=== PATIENT | female | born 1970 | race Caucasian/White ===

== ENCOUNTER → 2016-07-13 | Outpatient (CLI) | payer BC ==
[~2016-07-13] MED LIST: APIX1TAB3 PO; ASPI81TA28 PO; CALC1CHW4; CALC500C70 PO; CEPH500C2 PO; ENOX100I; ENOX40IN SQ; FEXO1TAB49 PO; FEXO1TAB58 PO; FLUO0.0566 TOP; TERB250T51 PO; TRIA1SPR4; WARF5TAB7 PO
--- NOTE | 2016-07-13 18:06 | DIAGNOSTIC IMAGING REPORT ---
RIGHT ELBOW 3 VIEWS CLINICAL HISTORY: Right elbow pain. No reported history of trauma. FINDINGS: 3 views of the right elbow are obtained. No prior studies are available for comparison at the time of dictation. The skeletal structures are well mineralized. No fracture is seen. The joint spaces of the elbow are well-maintained. No joint effusion is identified. The overlying soft tissues are within normal limits. IMPRESSION: Unremarkable radiographic assessment of the right elbow. Electronically signed by: Bryce Scanlon M.D. 07/13/2016 6:04 PM Dictated Date/Time: 07/13/2016 6:03 PM
== END | disposition home or self-care (01) ==
LOC: C.RAD1850 16:33
PROVIDERS: ATTEND Nurse Practitioner Adult Health
DX: M25.521 Pain in right elbow (principal)

== ENCOUNTER → 2016-09-07 | Outpatient (CLI) | payer BC | END | disposition home or self-care (01) | LOC: C.PAPS 11:49 | PROVIDERS: ATTEND Obstetrics & Gynecology | DX: Z01.419 Encounter for gynecological examination (general) (routine) without abnormal findings (principal); N95.8 Other specified menopausal and perimenopausal disorders ==

== ENCOUNTER → 2016-10-01 | Outpatient (CLI) | payer BC ==
--- NOTE | 2016-10-02 12:36 | MAMMOGRAPHY REPORT ---
BILATERAL DIGITAL SCREENING MAMMOGRAM TOMOSYNTHESIS WITH CAD: 10/01/2016 CLINICAL HISTORY: Routine screening. Patient has no complaints. TECHNIQUE: Breast tomosynthesis in addition to standard 2D mammography was performed. Current study was also evaluated with a Computer Aided Detection (CAD) system. COMPARISON: Comparison is made to exams dated: 09/27/2014 mammogram and 05/16/2013 mammogram - [facility]. BREAST COMPOSITION: The tissue of both breasts is extremely dense, which lowers the sensitivity of mammography. FINDINGS: No suspicious masses, calcifications, or areas of architectural distortion are noted in e ither breast. There has been no significant interval change compared to prior exams. An oval circum scribed benign appearing 18 mm mass seen within the left lateral anterior breast on the cc view is s table compared to the 2015 exam. IMPRESSION: ACR BI-RADS CATEGORY 2: BENIGN There is no mammographic evidence of malignancy. A 1 year screening mammogram is recommended. The p atient will receive written notification of the results. Approximately 10% of breast cancers are not detected with mammography. A negative mammographic repor t should not delay biopsy if a clinically suggestive mass is present. Ivonne Bhatti M.D. ah/:10/01/2016 16:32:55 Market Developer: Stella PIZARRO(Nabil)(M), [facility] letter sent: Normal 1/2 BI-RADS Code: ACR BI-RADS Category 2: Benign
== END | disposition home or self-care (01) ==
LOC: C.MAMM 15:52
PROVIDERS: ATTEND Obstetrics & Gynecology
DX: Z12.31 Encounter for screening mammogram for malignant neoplasm of breast (principal)

== ENCOUNTER 2016-12-29 11:21 | Emergency (ER) | payer BC ==
[~2016-12-29] VITALS: Ht 167.6 cm; Wt 64.8 kg
[2016-12-29 11:30] VITALS: TEMP 36.9; Ht 167.6 cm; Wt 64.8 kg
[2016-12-29] MEDS ORDERED: ASPI81TA28 PO (11:55)
[2016-12-29 12:51] LABS: BASO % 0.4 %; BASO ABS # 0.02 K/uL (0-0.2); COMPLETE YES; IG% 0.2 %; LYMPH % 29.5 %; LYMPH ABS # 1.62 K/uL (1.2-3.4); MEAN CELL VOLUME 80.6 fL (80-100); MEAN CORPUSCULAR HEMOGLOBIN 26.4 pg (25-34); MEAN CORPUSCULAR HGB CONC 32.8 g/dl (32-36); MONO % 9.5 %; NEUT % 58.4 %; PLATELET COUNT 196 K/uL (130-400); RED BLOOD COUNT 4.96 M/uL (4.2-5.4); WHITE BLOOD COUNT 5.49 K/uL (4.8-10.8)
[2016-12-29 13:02] LABS: PARTIAL THROMBOPLASTIN RATIO 0.9; PROTHROMBIN TIME (PATIENT) 10.7 SECONDS (9.0-12.0)
[2016-12-29 13:14] LABS: BUN/CREATININE RATIO 16.5 (10-20); CALCIUM 9.2 mg/dl (8.5-10.1); CREATININE 0.98 mg/dl (0.60-1.20); POTASSIUM 3.8 mmol/L (3.5-5.1)
--- NOTE | 2016-12-29 13:45 | DIAGNOSTIC IMAGING REPORT ---
ULTRASOUND LEFT VENOUS DOPP LOWER EXT UNILAT CLINICAL HISTORY: Left leg pain and swelling. History of prior DVT COMPARISON STUDY: 06/09/2015 FINDINGS: No thrombus is visualized in the common femoral vein. There is thrombus within the mid and distal portion the superficial femoral vein. The popliteal vein is thrombosed. There is probable involving the posterior tibial and peroneal veins. IMPRESSION: Acute left lower extremity DVT with involvement of the superficial femoral vein, popliteal vein, and posterior tibial and peroneal veins. Electronically signed by: Justin Hayden M.D. 12/29/2016 1:43 PM Dictated Date/Time: 12/29/2016 1:42 PM
--- NOTE | 2016-12-29 16:52 | History and Physical ---
History & Physical Date & Time of Service: Dec 29, 2016 at 16:29 Chief Complaint: Soreness,Swelling,Redness,Constricting Behind Knee Primary Care Physician: Lakshmi Benedict C.R.N.P. History of Present Illness Source: patient 46 y/o F Hx lower extremity DVT in 2003. The pt had been on Coumadin in 2003 and it was suspected that she may have failed treatment as her DVT propagated when her INR was therapeutic. She was placed on Lovenox injections for one month. She is due for vein stripping in her Leg on 01/12 due to venous reflux and resulting varicosities. Over the last 2 days she developed progressive pain in her LLE largely below the knee. She presented tp the ER as she suspected a DVT. Initial US is + for DVT affecting the superficial femoral vein, popliteal vein, and posterior tibial and peroneal veins. 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 drink or smoke Smoking Status: Never Smoker Drug Use: none Marital Status: Occupational Status: employed Multi-Drug Resistant Organisms History of MDRO: No Allergies Coded Allergies: Eugene Oil (Verified Allergy, Mild, MOUTH ULCERS AND SWOLLEN GLANDS, 12/29/16 ) Home Medications Scheduled Aspirin (Aspirin Ec), 81 MG PO DAILY Review of Systems Constitutional: No fever, No chills, No sweats Eyes: No worsening of vision, No eye pain ENT: No hearing loss, No nasal symptoms Respiratory: No cough, No sputum, No wheezing Cardiovascular: No chest pain, No orthopnea, No PND Abdomen: No pain, No nausea, No vomiting Musculoskeletal: + problem reported (Pain of posterior L leg below knee), No joint pain Genitourinary - Female: No dysuria, No urinary frequency, No urinary urgency Neurologic: No memory loss, No paralysis, No weakness Psychiatric: No depression symptoms Endocrine: No fatigue Hematologic / Lymphatic: + clotting problems Integumentary: No rash Allergic / Immunologic: No environmental allergies Physical Exam Vital Signs Date Time Temp Pulse Resp B/P (MAP) Pulse Ox O2 Delivery O2 Flow Rate FiO2 12/29/16 16:12 69 16 109/67 99 Room Air 12/29/16 14:03 62 16 100/65 100 Room Air 12/29/16 11:30 36.9 78 16 124/91 98 General Appearance: WD/WN, no apparent distress Head: normocephalic Eyes: normal inspection, PERRL, EOMI ENT: normal ENT inspection, pharynx normal Neck: supple Respiratory/Chest: chest non-tender, lungs clear, normal breath sounds Cardiovascular: regular rate, rhythm, no edema, no gallop Abdomen/GI: normal bowel sounds, non tender, soft Back: normal inspection, no CVA tenderness, no muscle spasm, normal range of motion Extremities/Musculoskelatal: normal inspection, no calf tenderness, normal capillary refill Neurologic/Psych: clam shucker II-XII nml as tested, no motor/sensory deficits, alert, normal mood/affect, normal reflexes, oriented x 3 Skin: normal color, warm/dry, no rash Diagnostics Laboratory Results Results Past 24 Hours Test 12/29/16 11:45 Range/Units White Blood Count 5.49 4.8-10.8 K/uL Red Blood Count 4.96 4.2-5.4 M/uL Hemoglobin 13.1 12.0-16.0 g/dL Hematocrit 40.0 37-47 % Mean Corpuscular Volume 80.6 80-100 fL Mean Corpuscular Hemoglobin 26.4 25-34 pg Mean Corpuscular Hemoglobin Concent 32.8 32-36 g/dl Platelet Count 196 130-400 K/uL Mean Platelet Volume 10.0 7.4-10.4 fL Neutrophils (%) (Auto) 58.4 % Lymphocytes (%) (Auto) 29.5 % Monocytes (%) (Auto) 9.5 % Eosinophils (%) (Auto) 2.0 % Basophils (%) (Auto) 0.4 % Neutrophils # (Auto) 3.21 1.4-6.5 K/uL Lymphocytes # (Auto) 1.62 1.2-3.4 K/uL Monocytes # (Auto) 0.52 0.11-0.59 K/uL Eosinophils # (Auto) 0.11 0-0.5 K/uL Basophils # (Auto) 0.02 0-0.2 K/uL RDW Standard Deviation 45.3 36.4-46.3 fL RDW Coefficient of Variation 15.4 11.5-14.5 % Immature Granulocyte % (Auto) 0.2 % Immature Granulocyte # (Auto) 0.01 0.00-0.02 K/uL Prothrombin Time 10.7 9.0-12.0 SECONDS Prothromb Time International Ratio 1.0 0.9-1.1 Activated Partial Thromboplast Time 24.5 21.0-31.0 SECONDS Partial Thromboplastin Ratio 0.9 Sodium Level 140 136-145 mmol/L Potassium Level 3.8 3.5-5.1 mmol/L Chloride Level 106 98-107 mmol/L Carbon Dioxide Level 24 21-32 mmol/L Anion Gap 10.0 3-11 mmol/L Blood Urea Nitrogen 16 7-18 mg/dl Creatinine 0.98 0.60-1.20 mg/dl Est Creatinine Clear Calc Drug Dose 67.1 ml/min Estimated GFR () 80.2 Estimated GFR (Non- 69.2 BUN/Creatinine Ratio 16.5 10-20 Random Glucose 83 70-99 mg/dl Calcium Level 9.2 8.5-10.1 mg/dl Total Bilirubin 0.4 0.2-1 mg/dl Direct Bilirubin 0.1 0-0.2 mg/dl Aspartate Amino Transf (AST/SGOT) 28 15-37 U/L Alanine Aminotransferase (ALT/SGPT) 24 12-78 U/L Alkaline Phosphatase 75 45-117 U/L Total Protein 7.6 6.4-8.2 gm/dl Albumin 3.9 3.4-5.0 gm/dl Diagnostic Radiology LE ulrasound: Acute left lower extremity DVT with involvement of the superficial femoral vein , popliteal vein, and posterior tibial and peroneal veins. Impression Assessment and Plan 46 y/o F Hx lower extremity DVT in 2003. The pt had been on Coumadin in 2003 and it was suspected that she may have failed treatment as her DVT propagated when her INR was therapeutic. She was placed on Lovenox injections for one month. She is due for vein stripping in her Leg on 01/12 due to venous reflux and resulting varicosities. Over the last 2 days she developed progressive pain in her LLE largely below the knee. She presented tp the ER as she suspected a DVT. Initial US is + for DVT affecting the superficial femoral vein, popliteal vein, and posterior tibial and peroneal veins. The medical service will make the following recommendations 1) Lovenox 1mg/kg daily 2) Apt with Dr Halle gabriel 3) Return to hospital with any CP, acute SOB or worsening pain/inflammation in your lower extremity Above discussed with pt, ER attending and hematology Total time for this consult - 40 min Please note above is an outpt consult
[2016-12-29] MEDS ORDERED: ENOX40IN SQ (17:17)
[2016-12-29] MEDS ORDERED: ENOXAPARIN 80 MG/0.8 ML SYR SQ ONE (17:30)
[2016-12-29 17:55] VITALS: BP 118/75; PULSE 54; O2SAT 100
--- NOTE | 2016-12-29 21:18 | EMERGENCY ROOM VISIT NOTE ---
ED Visit Note First contact with patient: 11:56 Chief Complaint: Left leg pain. History of Present Illness: Ms. Padilla is a 46-year-old white female who ambulates into the ED complaining of posterior left knee pain. Historically patient reports approximately 12 years ago she had a large DVT in her left leg; she reports from the iliacs down to her ankle, and a subsequent pulmonary embolism. After extensive testing she reports no specific cause was identified and she was not a postsurgical patient. Patient reports approximately one week ago and ultrasound was performed to her leg because she was having pending venous surgery and no clots were identified. Patient reports just today afternoon she was walking to her car up a flight of stairs in a garage and noticed that she had posterior left knee pain. Since that time her pain has been constant. She describes her pain as a sometimes throbbing and sometimes stretching sensation. She currently rates her discomfort 4/10. Her pain has mild radiation superiorly into the posterior aspect of the thigh. Her pain worsens when she climbs stairs or inclines. She had mild relief while at rest. She reports taking an 81 mg tablet of aspirin last night and one again this morning for her discomfort. Associated with her pain she reports last night she noted swelling over the posterior aspect of the knee and into the calf and pain and tenderness over the great toe in the area of the cuticle. He denies headache, dizziness, lightheadedness, upper respiratory tract symptoms , cough, wheezing, shortness of breath, chest pain, palpitations, abdominal pain , nausea, vomiting, diarrhea, rectal bleeding, black/tarry stools, back/flank pain, urinary symptoms, left leg weakness/numbness/tingling, recent trauma to the left leg, recent surgery/extended travel. Review of Systems: As noted above in history of present illness. All body systems were reviewed and found to be negative as noted above. Past Medical History: As previously noted and unspecified skin disorder, asthma , bronchitis, pneumonia, unspecified GI pain that is ongoing and is being evaluated, status post uterine lining ablation, lumbar fusion. Current Medications: Aspirin. Allergies to Medications: Patient denies. Social History: Patient is currently employed; she lives with her and feels safe in her home environment; she denies tobacco and alcohol use. Physical Examination: Vital Signs: Date Time Temp Pulse Resp B/P (MAP) Pulse Ox O2 Delivery O2 Flow Rate FiO2 7/11/17 17:55 54 16 118/75 100 12/29/16 16:12 69 16 109/67 99 Room Air 12/29/16 14:03 62 16 100/65 100 Room Air 12/29/16 11:30 36.9 78 16 124/91 98 GENERAL: 46-year-old female in mild distress due to pain, nontoxic-appearing, afebrile and hemodynamically stable. NEUROLOGICAL: Awake, alert and oriented to person, place and time. Answering questions appropriately and following commands. Normal gait. Good hand eye coordination. No focal motor sensory deficits. SKIN: Warm, dry and pink. No soft tissue eruptions or trauma noted. HEENT: Atraumatic and normocephalic. PERRLA. Sclera white and conjunctiva pink. No drainage from naris. Oral cavity moist and pink. Pharynx is nonerythematous or edematous. Speech normal. No lymphadenopathy. Trachea midline. No jugular venous distention. No carotid bruits. BACK: No tenderness over the bony spine. No CVA tenderness. THORAX: Lungs sounds are clear to auscultation and equal bilaterally with symmetrical chest wall. No wheezing, rales or rhonchi. No crepitus, tenderness , subcutaneous air or deformities noted. HEART: Regular rate and rhythm. No gallops, rubs or murmurs are appreciated. PMI is not displaced. No lifts, heaves or thrills. ABDOMEN: Flat, soft and nontender. Positive bowel sounds in all quadrants. No guarding, rigidity or organomegaly. EXTREMITIES: Moves all extremities well on command and with purpose. All distal neurovascular statuses are intact and equal bilaterally. Left Lower Extremity: Mild to moderate tenderness throughout the popliteal area with mild swelling but no erythema. There is no appearance of cellulitis. No joint line tenderness. Negative patellar apprehension test. Negative ballottement test. No laxity of collateral cruciate ligaments. Morales's testing was deferred. She does have full range of motion of flexion and extension of the knee. Mild fullness to the posterior lower leg without palpable cords. No tenderness through the ankle or foot. Distal pulses are intact. The great toe does show some mild erythema around the cuticle without signs of cellulitis or obvious infection. She was able to distinguish light sensations through all dermatomes of the foot. ED Course: Patient is assessed as noted above. Patient's medication list was reviewed. Laboratory Testing: Test 12/29/16 11:45 Range/Units White Blood Count 5.49 4.8-10.8 K/uL Red Blood Count 4.96 4.2-5.4 M/uL Hemoglobin 13.1 12.0-16.0 g/dL Hematocrit 40.0 37-47 % Mean Corpuscular Volume 80.6 80-100 fL Mean Corpuscular Hemoglobin 26.4 25-34 pg Mean Corpuscular Hemoglobin Concent 32.8 32-36 g/dl Platelet Count 196 130-400 K/uL Mean Platelet Volume 10.0 7.4-10.4 fL Neutrophils (%) (Auto) 58.4 % Lymphocytes (%) (Auto) 29.5 % Monocytes (%) (Auto) 9.5 % Eosinophils (%) (Auto) 2.0 % Basophils (%) (Auto) 0.4 % Neutrophils # (Auto) 3.21 1.4-6.5 K/uL Lymphocytes # (Auto) 1.62 1.2-3.4 K/uL Monocytes # (Auto) 0.52 0.11-0.59 K/uL Eosinophils # (Auto) 0.11 0-0.5 K/uL Basophils # (Auto) 0.02 0-0.2 K/uL RDW Standard Deviation 45.3 36.4-46.3 fL RDW Coefficient of Variation 15.4 11.5-14.5 % Immature Granulocyte % (Auto) 0.2 % Immature Granulocyte # (Auto) 0.01 0.00-0.02 K/uL Prothrombin Time 10.7 9.0-12.0 SECONDS Prothromb Time International Ratio 1.0 0.9-1.1 Activated Partial Thromboplast Time 24.5 21.0-31.0 SECONDS Partial Thromboplastin Ratio 0.9 Sodium Level 140 136-145 mmol/L Potassium Level 3.8 3.5-5.1 mmol/L Chloride Level 106 98-107 mmol/L Carbon Dioxide Level 24 21-32 mmol/L Anion Gap 10.0 3-11 mmol/L Blood Urea Nitrogen 16 7-18 mg/dl Creatinine 0.98 0.60-1.20 mg/dl Est Creatinine Clear Calc Drug Dose 67.1 ml/min Estimated GFR () 80.2 Estimated GFR (Non- 69.2 BUN/Creatinine Ratio 16.5 10-20 Random Glucose 83 70-99 mg/dl Calcium Level 9.2 8.5-10.1 mg/dl Total Bilirubin 0.4 0.2-1 mg/dl Direct Bilirubin 0.1 0-0.2 mg/dl Aspartate Amino Transf (AST/SGOT) 28 15-37 U/L Alanine Aminotransferase (ALT/SGPT) 24 12-78 U/L Alkaline Phosphatase 75 45-117 U/L Total Protein 7.6 6.4-8.2 gm/dl Albumin 3.9 3.4-5.0 gm/dl Left Lower Extremity Venous Doppler Ultrasound: Was reviewed by myself and read by the radiologist and shows acute left lower extremity DVT involving the superficial femoral vein, popliteal vein, posterior tibial and peroneal veins. Patient was offered pain medication and refused multiple times. Patient's case was reviewed with Dr. Guerin; we agreed on diagnostic approach, treatment, disposition and plan. Patient's case was consulted with Dr. Snow, vascular surgery; he recommended heparinization and admission. Patient's case was consulted with case management and [facility] Thacker, [facility]; case management felt patient had qualifications for admission. Dr. Thacker felt she could be treated with Lovenox and discharged home. I did recontact Dr. Snow for his recommendations and he felt that since this involved for veins there was an extensive clot and once again she should be heparinized be brought into the hospital for further evaluation and care. Dr. Guerin spoke with Dr. Thacker and reported Dr. Thacker will evaluate the patient for admission. Approximately 2 hours after receiving notification of admission I was called by my attending, Dr. Guerin, who informed me that Dr. Thacker was discharging the patient home to follow-up with hematology. I was requested to write the patient 's discharge instructions from Dr. Thacker notes. Patient was given 65 mg of Lovenox subcutaneous. Patient was given nursing education on subcutaneous injections. Patient was given discharge instructions, prescriptions for her ongoing Lovenox injections and contact information for her follow-up with Dr. Padron. Clinical Impression: Acute left lower leg DVT. Decision-Making: Initially my differential diagnosis I considered DVT, ruptured popliteal cyst, muscle/tendon strain, and other causes. Disposition: Patient discharged home in stable condition accompanied by multiple family members; prior to departure she was reassessed and subjectively reported that she was pain-free. Plan: Dr. Thacker's discharge instructions: Use 1 mg/kg Lovenox injection subcutaneous once a day. Follow-up with Dr. Padron; he reported appointment was made but I was unable to find an appointment time or date or location. Return to the hospital for chest pain, short of breath, worsening pain/ inflammation of the lower extremity.
[2017-01-12] MEDS ORDERED: ENOX100I (11:19)
[2017-01-12] MEDS ORDERED: FEXO1TAB49 PO (11:19)
[2017-01-12] MEDS ORDERED: CALC1CHW4 (13:43)
[2017-01-12] MEDS ORDERED: WARF5TAB7 PO (14:04)
[2017-01-15] MEDS ORDERED: FEXO1TAB58 PO (11:49)
[2017-01-19] MEDS ORDERED: TRIA1SPR4 (14:31)
[2017-01-22] MEDS ORDERED: FLUO0.0566 TOP (11:45)
[2017-01-22] MEDS ORDERED: CALC500C70 PO (11:45)
[2017-01-29] MEDS ORDERED: WARF5TAB7 PO (14:03)
[2017-03-01] MEDS ORDERED: CEPH500C2 PO (12:19)
[2017-03-05] MEDS ORDERED: TERB250T51 PO (09:58)
[2017-03-16] MEDS ORDERED: APIX1TAB3 PO (11:17)
== END 2016-12-29 17:55 | disposition home or self-care (01) ==
LOC: C.EDB 11:22
DX: I82.432 Acute embolism and thrombosis of left popliteal vein (principal); I82.442 Acute embolism and thrombosis of left tibial vein; I82.890 Acute embolism and thrombosis of other specified veins; I82.812 Embolism and thrombosis of superficial veins of left lower extremity; J45.909 Unspecified asthma, uncomplicated; Z86.718 Personal history of other venous thrombosis and embolism; Z86.711 Personal history of pulmonary embolism; Z79.82 Long term (current) use of aspirin

== ENCOUNTER 2016-12-31 10:31 | Emergency (ER) | payer BC, OTHER ==
[~2016-12-31] VITALS: Ht 167.6 cm; Wt 64.1 kg
[~2016-12-31 10:31] MED LIST changes: -APIX1TAB3 PO; -CALC1CHW4; -CALC500C70 PO; -CEPH500C2 PO; -ENOX100I; -FEXO1TAB49 PO; -FEXO1TAB58 PO; -FLUO0.0566 TOP; -TERB250T51 PO; -TRIA1SPR4; -WARF5TAB7 PO
[2016-12-31 10:35] VITALS: TEMP 36.7; Ht 167.6 cm; Wt 64.1 kg
--- NOTE | 2016-12-31 10:55 | EMERGENCY ROOM VISIT NOTE ---
History Report prepared by Darryl: Shaw Romero Under the Supervision of: Dr. Roni Keller M.D. First contact with patient: 10:44 Chief Complaint: SHORTNESS OF BREATH Stated Complaint: LIGHTNEADED, SOB, PAIN IN LEG W/ CLOTS Nursing Triage Summary: Pt c/o SOB, dx with 4 blood clots behind left knee on Wednesday. Taking Lovenox. Hx PE. History of Present Illness The patient is a 46 year old female who presents to the Emergency Room with complaints of constant shortness of breath starting earlier today. The patient states that she was diagnosed with four blood clots behind her left knee two days ago. The patient states that this morning she was having cramping in the back of her calves, and when she went to walk she was becoming short of breath and light headed. She states that she has a history of induced asthma as well. The patient states that she is not currently on coumadin, and she is taking Lovenox shots. Source of History: patient Onset: earlier today Position: other (global) Quality: other (shortness of breath) Timing: constant Note: Associated symptoms: Calf cramping and light headedness Review of Systems See HPI for pertinent positives & negatives. A total of 10 systems reviewed and were otherwise negative. Past Medical & Surgical Medical Problems: (1) Deep vein blood clot of left lower extremity (2) Pulmonary embolism Social History Smoking Status: Never Smoker Alcohol Use: none Drug Use: none Marital Status: Housing Status: lives with family Occupation Status: employed Current/Historical Medications Scheduled Enoxaparin (Lovenox), 65 MG SQ DAILY Allergies Coded Allergies: [place] Oil (Verified Allergy, Mild, MOUTH ULCERS AND SWOLLEN GLANDS, 12/31/16 ) Physical Exam Vital Signs Date Time Temp Pulse Resp B/P (MAP) Pulse Ox O2 Delivery O2 Flow Rate FiO2 12/31/16 12:39 58 20 115/80 99 Room Air 12/31/16 11:38 57 12/31/16 11:14 98 Room Air 12/31/16 11:13 98 Room Air 12/31/16 11:13 98 Room Air 12/31/16 10:35 36.7 69 18 143/93 100 Room Air 12/31/16 10:35 100 Physical Exam GENERAL: Patient is a healthy-appearing well-nourished female HEAD: Normocephalic atraumatic EYES: Ocular movements intact pupils equal and react to light OROPHARYNX mucous membranes are moist no exudates present no erythema or edema present NECK: Supple no nuchal rigidity CHEST: Good equal expansion LUNGS: Clear and equal to auscultation CARDIAC: Normal S1 and S2 ABDOMEN: Soft nontender no guarding BACK: No CVA tenderness EXTREMITIES: No pain upon palpation normal muscle strength in all groups no clubbing cyanosis or edema NEURO: Patient is following commands and answering questions appropriately. Alert and oriented x3 Cranial Nerves 2-12 grossly intact Medical Decision & Procedures ER Provider Diagnostic Interpretation: CT results as stated below per my review and radiologist interpretation: (CHEST FOR PE) ANGIO WITH CT DOSE: 203.65 mGy.cm HISTORY: Chest pain dyspnea TECHNIQUE: Multiaxial CT images of the chest were performed following the intravenous administration of contrast to evaluate the pulmonary arteries. Maximal intensity projection images were also obtained. COMPARISON STUDY: 10/23/2008 FINDINGS: There is a normal caliber thoracic aorta with no evidence for dissection. There is no evidence for pulmonary embolus. No pleural effusions. No pneumothorax. The liver and spleen are unremarkable. No mediastinal or hilar lymphadenopathy. The central airways are patent. The lungs are clear. IMPRESSION: No evidence for pulmonary embolus. The lungs are clear. The above report was generated using voice recognition software. It may contain grammatical, syntax or spelling errors. Electronically signed by: Abhilash Wilkinson M.D. 12/31/2016 12:03 PM Dictated Date/Time: 12/31/2016 12:00 PM Laboratory Results 12/31/16 11:05 Red Blood Count 4.78, Mean Corpuscular Volume 82.2, Mean Corpuscular Hemoglobin 26.2, Mean Corpuscular Hemoglobin Concent 31.8, Mean Platelet Volume 9.7, Neutrophils (%) (Auto) 47.0, Lymphocytes (%) (Auto) 42.6, Monocytes (%) (Auto) 7.5, Eosinophils (%) (Auto) 2.6, Basophils (%) (Auto) 0.3, Neutrophils # (Auto) 1.82, Lymphocytes # (Auto) 1.65, Monocytes # (Auto) 0.29, Eosinophils # (Auto) 0.10, Basophils # (Auto) 0.01 12/31/16 11:05 Test 12/31/16 11:05 12/31/16 11:09 12/31/16 12:35 White Blood Count 3.87 K/uL (4.8-10.8) Red Blood Count 4.78 M/uL (4.2-5.4) Hemoglobin 12.5 g/dL (12.0-16.0) Hematocrit 39.3 % (37-47) Mean Corpuscular Volume 82.2 fL (80-100) Mean Corpuscular Hemoglobin 26.2 pg (25-34) Mean Corpuscular Hemoglobin Concent 31.8 g/dl (32-36) Platelet Count 157 K/uL (130-400) Mean Platelet Volume 9.7 fL (7.4-10.4) Neutrophils (%) (Auto) 47.0 % Lymphocytes (%) (Auto) 42.6 % Monocytes (%) (Auto) 7.5 % Eosinophils (%) (Auto) 2.6 % Basophils (%) (Auto) 0.3 % Neutrophils # (Auto) 1.82 K/uL (1.4-6.5) Lymphocytes # (Auto) 1.65 K/uL (1.2-3.4) Monocytes # (Auto) 0.29 K/uL (0.11-0.59) Eosinophils # (Auto) 0.10 K/uL (0-0.5) Basophils # (Auto) 0.01 K/uL (0-0.2) RDW Standard Deviation 47.0 fL (36.4-46.3) RDW Coefficient of Variation 15.6 % (11.5-14.5) Immature Granulocyte % (Auto) 0.0 % Immature Granulocyte # (Auto) 0.00 K/uL (0.00-0.02) Heparin Anti-Xa Act, Low Molec Wt 0.33 IU/ML (0 - <0.10) Est Creatinine Clear Calc Drug Dose 71.5 ml/min Estimated GFR () 86.5 Estimated GFR (Non- 74.7 BUN/Creatinine Ratio 16.6 (10-20) Calcium Level 9.4 mg/dl (8.5-10.1) Total Bilirubin 0.4 mg/dl (0.2-1) Aspartate Amino Transf (AST/SGOT) 22 U/L (15-37) Alanine Aminotransferase (ALT/SGPT) 20 U/L (12-78) Alkaline Phosphatase 71 U/L (45-117) Total Protein 7.2 gm/dl (6.4-8.2) Albumin 3.6 gm/dl (3.4-5.0) Globulin 3.6 gm/dl (2.5-4.0) Albumin/Globulin Ratio 1.0 (0.9-2) Bedside Hemoglobin 12.2 g/dl (12.0-16.0) Bedside Hematocrit 36 % (37-47) Bedside Sodium 141 mEq/L (135-144) Bedside Potassium 3.7 mEq/L (3.3-5.0) Bedside Chloride 104 mEq/L (101-112) Bedside Total CO2 26 mEq/l (24-31) Anion Gap 16.0 mmol/L (16-25) Bedside Blood Urea Nitrogen 18 mg/dl (7-18) Bedside Creatinine 0.8 mg/dl (0.6-1.3) Bedside Glucose (other) 75 mg/dl (70-99) Bedside Ionized Calcium ([place]) 1.28 mmol/l (1.12-1.32) Urine Color YELLOW Urine Appearance CLEAR (CLEAR) Urine pH 6.5 (4.5-7.5) Urine Specific [place] 1.015 (1.000-1.030) Urine Protein NEG (NEG) Urine Glucose (UA) NEG (NEG) Urine Ketones NEG (NEG) Urine Occult Blood NEG (NEG) Urine Nitrite NEG (NEG) Urine Bilirubin NEG (NEG) Urine Urobilinogen NEG (NEG) Urine Leukocyte Esterase NEG (NEG) Labs reviewed by ED physician. ECG Indication: SOB/dyspnea Rate (beats per minute): 54 Rhythm: sinus bradycardia Findings: no acute ischemic change, no ectopy ED Course 1044: Past medical records reviewed. The patient was evaluated in room C5. A complete history and physical examination was performed. 1240: Upon reexamination the patient is feeling better. I discussed results and treatment plan with the patient. She verbalizes agreement and understanding. The patient is ready for discharge. Medical Decision Differential diagnosis: Etiologies such as infections, reactive airway disease, pneumonia, pneumothorax , COPD, CHF, cardiac ischemia, pulmonary embolism, musculoskeletal, gastrointestinal, as well as others were entertained. Blood Pressure Screening: Patient was found to have normal blood pressure on screening and does not require follow up. Medication Reconciliation: I attest that I have personally reviewed the patient' s current medication list this is a 46-year-old female who presents emergency department complaining of shortness of breath. The patient is a history of PEs and was recently started on Lovenox for DVT. For this reason the patient was sent for CAT scan of the chest. This did not show any evidence of PE. I do feel that the patient can be safely discharged home. I advised patient to continue taking her Lovenox. Patient was in agreement with the treatment plan. Impression Primary Impression: Deep vein blood clot of left lower extremity Scribe Attestation The scribe's documentation has been prepared under my direction and personally reviewed by me in its entirety. I confirm that the note above accurately reflects all work, treatment, procedures, and medical decision making performed by me. Departure Information Dispostion Home / Self-Care Referrals Lakshmi Benedict C.R.N.P. (PCP) Forms HOME CARE DOCUMENTATION FORM, IMPORTANT VISIT INFORMATION Patient Instructions My [facility] Additional Instructions Continue taking Lovenox, Keep appointments as previously scheduled You have been examined and treated today on an emergency basis only. This is not a substitute for, or an effort to provide, complete comprehensive medical care. It is impossible to recognize and treat all injuries or illnesses in a single emergency department visit. It is therefore important that you follow up closely with your PCP. Call as soon as possible for an appointment. Thank you for your time and consideration. I look forward to speaking with you again soon. Please don't hesitate to call us if you have any questions. Problem Qualifiers Primary Impression: Deep vein blood clot of left lower extremity Affected thrombotic vein of extremity: unspecified vein of extremity Chronicity: unspecified Qualified Codes: I82.402 - Acute embolism and thrombosis of unspecified deep veins of left lower extremity
[2016-12-31] MEDS ORDERED: OPTIRAY 320 IV PRN (11:00)
[2016-12-31 11:13] VITALS: O2SAT 98
[2016-12-31 11:20] LABS: ISTAT CREATININE 0.8 mg/dl (0.6-1.3); ISTAT HEMOGLOBIN 12.2 g/dl (12.0-16.0); ISTAT IONIZED CALCIUM 1.28 mmol/l (1.12-1.32)
[2016-12-31 11:22] LABS: BASO % 0.3 %; BASO ABS # 0.01 K/uL (0-0.2); COMPLETE YES; EOS % 2.6 %; HEMATOCRIT 39.3 % (37-47); LYMPH % 42.6 %; LYMPH ABS # 1.65 K/uL (1.2-3.4); MEAN CELL VOLUME 82.2 fL (80-100); MEAN CORPUSCULAR HEMOGLOBIN 26.2 pg (25-34); MEAN CORPUSCULAR HGB CONC 31.8 g/dl (32-36); MEAN PLATELET VOLUME 9.7 fL (7.4-10.4); MONO % 7.5 %; PLATELET COUNT 157 K/uL (130-400); RED BLOOD COUNT 4.78 M/uL (4.2-5.4); WHITE BLOOD COUNT 3.87 K/uL (4.8-10.8)
[2016-12-31 11:38] LABS: BUN/CREATININE RATIO 16.6 (10-20); CALCIUM 9.4 mg/dl (8.5-10.1); CREATININE 0.92 mg/dl (0.60-1.20); POTASSIUM 3.7 mmol/L (3.5-5.1)
--- NOTE | 2016-12-31 12:04 | DIAGNOSTIC IMAGING REPORT ---
(CHEST FOR PE) ANGIO WITH CT DOSE: 203.65 mGy.cm HISTORY: Chest pain dyspnea TECHNIQUE: Multiaxial CT images of the chest were performed following the intravenous administration of contrast to evaluate the pulmonary arteries. Maximal intensity projection images were also obtained. COMPARISON STUDY: 10/23/2008 FINDINGS: There is a normal caliber thoracic aorta with no evidence for dissection. There is no evidence for pulmonary embolus. No pleural effusions. No pneumothorax. The liver and spleen are unremarkable. No mediastinal or hilar lymphadenopathy. The central airways are patent. The lungs are clear. IMPRESSION: No evidence for pulmonary embolus. The lungs are clear. The above report was generated using voice recognition software. It may contain grammatical, syntax or spelling errors. Electronically signed by: Abhilash Wilkinson M.D. 12/31/2016 12:03 PM Dictated Date/Time: 12/31/2016 12:00 PM
[2016-12-31 12:39] VITALS: BP 115/80; PULSE 58; O2SAT 99
[2016-12-31 13:09] LABS: URINE APPEARANCE CLEAR (CLEAR); URINE BILIRUBIN NEG (NEG); URINE COLOR YELLOW; URINE NITRITE NEG (NEG); URINE PH 6.5 (4.5-7.5); URINE SPECIFIC GRAVITY 1.015 (1.000-1.030); UROBILINOGEN NEG (NEG)
[2016-12-31 13:13] LABS: MANUAL MICROSCOPIC REQUIRED? NO; REVIEW REQ? NO
[2017-01-12] MEDS ORDERED: ENOX100I (11:19)
[2017-01-12] MEDS ORDERED: FEXO1TAB49 PO (11:19)
[2017-01-12] MEDS ORDERED: CALC1CHW4 (13:43)
[2017-01-12] MEDS ORDERED: WARF5TAB7 PO (14:04)
[2017-01-15] MEDS ORDERED: FEXO1TAB58 PO (11:49)
[2017-01-19] MEDS ORDERED: TRIA1SPR4 (14:31)
[2017-01-22] MEDS ORDERED: CALC500C70 PO (11:45)
[2017-01-22] MEDS ORDERED: FLUO0.0566 TOP (11:45)
[2017-01-29] MEDS ORDERED: WARF5TAB7 PO (14:03)
[2017-03-01] MEDS ORDERED: CEPH500C2 PO (12:19)
[2017-03-05] MEDS ORDERED: TERB250T51 PO (09:58)
[2017-03-16] MEDS ORDERED: APIX1TAB3 PO (11:17)
== END 2016-12-31 12:58 | disposition home or self-care (01) ==
LOC: C.EDB 10:32 → C.EDC 12:58
DX: I82.4Z2 Acute embolism and thrombosis of unspecified deep veins of left distal lower extremity (principal); Z86.711 Personal history of pulmonary embolism; Z79.899 Other long term (current) drug therapy; Z91.018 Allergy to other foods

== ENCOUNTER → 2017-01-07 | Outpatient (CLI) | payer BC ==
[~2017-01-07] MED LIST changes: +APIX1TAB3 PO; -ASPI81TA28 PO; +CALC1CHW4; +CALC500C70 PO; +CEPH500C2 PO; +ENOX100I; +FEXO1TAB49 PO; +FEXO1TAB58 PO; +FLUO0.0566 TOP; +TERB250T51 PO; +TRIA1SPR4; +WARF5TAB7 PO
--- NOTE | 2017-01-07 14:41 | DIAGNOSTIC IMAGING REPORT ---
ULTRASOUND LEFT VENOUS DOPP LOWER EXT UNILAT CLINICAL HISTORY: Left leg pain and swelling COMPARISON STUDY: 12/29/2016 FINDINGS: There is a persistent thrombus within the left superficial femoral popliteal posterior tibial and peroneal veins. There is also thrombus within what is likely the sural vein at the level of the popliteal fossa IMPRESSION: Persistent left lower extremity DVT with involvement of the superficial femoral, popliteal, posterior tibial and peroneal veins. Electronically signed by: Justin Hayden M.D. 01/07/2017 2:40 PM Dictated Date/Time: 01/07/2017 2:37 PM
== END | disposition home or self-care (01) ==
LOC: C.ULTR 14:09
PROVIDERS: ATTEND Internal Medicine Hematology & Oncology
DX: D68.59 Other primary thrombophilia (principal); Z86.718 Personal history of other venous thrombosis and embolism; I82.432 Acute embolism and thrombosis of left popliteal vein; I82.442 Acute embolism and thrombosis of left tibial vein; I82.493 Acute embolism and thrombosis of other specified deep vein of lower extremity, bilateral; I82.812 Embolism and thrombosis of superficial veins of left lower extremity

== ENCOUNTER → 2017-01-22 | Outpatient (CLI) | payer BC ==
[~2017-01-22] MED LIST changes: -ENOX100I; -ENOX40IN SQ; -FEXO1TAB49 PO
[2017-01-22 09:35] LABS: BASO % 0.3 %; BASO ABS # 0.01 K/uL (0-0.2); COMPLETE YES; EOS % 2.7 %; HEMATOCRIT 39.5 % (37-47); LYMPH % 44.2 %; LYMPH ABS # 1.49 K/uL (1.2-3.4); MEAN CELL VOLUME 82.5 fL (80-100); MEAN CORPUSCULAR HEMOGLOBIN 27.1 pg (25-34); MEAN CORPUSCULAR HGB CONC 32.9 g/dl (32-36); MONO % 8.6 %; NEUT % 44.2 %; PLATELET COUNT 193 K/uL (130-400); RED BLOOD COUNT 4.79 M/uL (4.2-5.4); WHITE BLOOD COUNT 3.37 K/uL (4.8-10.8)
[2017-01-22 10:09] LABS: ALT/SGPT 63 U/L (12-78); BLOOD UREA NITROGEN 17 mg/dl (7-18); BUN/CREATININE RATIO 17.8 (10-20); CALCIUM 9.4 mg/dl (8.5-10.1); CARBON DIOXIDE 31 mmol/L (21-32); CHLORIDE 107 mmol/L (98-107); CHOLESTEROL 157 mg/dl (0-200); CREATININE 0.94 mg/dl (0.60-1.20); GLUCOSE 81 mg/dl (70-99); POTASSIUM 3.9 mmol/L (3.5-5.1); SODIUM 142 mmol/L (136-145); TRIGLYCERIDES 56 mg/dl (0-150); URIC ACID 3.1 mg/dl (2.6-7.2); VERY LOW DENSITY LIPOPROT CALC 11 mg/dl
[2017-01-22 10:13] LABS: ALB/GLOB RATIO 1.1 (0.9-2); ALKALINE PHOSPHATASE 68 U/L (45-117); AST/SGOT 31 U/L (15-37); CHOLESTEROL/HDL RATIO 2.2; HDL CHOLESTEROL 73 mg/dl; LDL CHOLESTEROL CALCULATED 73 mg/dl
== END | disposition home or self-care (01) ==
LOC: C.LAB1850 07:41
PROVIDERS: ATTEND Nurse Practitioner Adult Health
DX: Z00.00 Encounter for general adult medical examination without abnormal findings (principal); M79.675 Pain in left toe(s)

== ENCOUNTER → 2017-03-05 | Outpatient (CLI) | payer BC ==
[~2017-03-05] MED LIST changes: -CALC1CHW4
== END | disposition home or self-care (01) ==
LOC: C.LAB1850 08:21
PROVIDERS: ATTEND Podiatrist Foot & Ankle Surgery
DX: B35.1 Tinea unguium (principal)

== ENCOUNTER → 2017-04-13 | Outpatient (CLI) | payer BC ==
[~2017-04-13] MED LIST changes: -CEPH500C2 PO; -WARF5TAB7 PO
[2017-04-13 14:46] LABS: HEMATOCRIT 42.7 % (37-47); MEAN CELL VOLUME 87.9 fL (80-100); MEAN CORPUSCULAR HEMOGLOBIN 28.8 pg (25-34); MEAN CORPUSCULAR HGB CONC 32.8 g/dl (32-36); PLATELET COUNT 204 K/uL (130-400); RED BLOOD COUNT 4.86 M/uL (4.2-5.4); WHITE BLOOD COUNT 4.41 K/uL (4.8-10.8)
[2017-04-13 15:08] LABS: PHOSPHORUS 2.9 mg/dl (2.5-4.9)
[2017-04-14 10:46] LABS: CREATININE 0.91 mg/dl (0.60-1.20)
== END | disposition home or self-care (01) ==
LOC: C.LAB1850 12:27
PROVIDERS: ATTEND Podiatrist Foot & Ankle Surgery
DX: Z79.01 Long term (current) use of anticoagulants (principal); Z51.81 Encounter for therapeutic drug level monitoring; L60.3 Nail dystrophy; L03.032 Cellulitis of left toe

== ENCOUNTER → 2017-05-24 | Outpatient (CLI) | payer BC | END | disposition home or self-care (01) | LOC: C.LABSPEC 17:20 | PROVIDERS: ATTEND Podiatrist Foot & Ankle Surgery | DX: L60.0 Ingrowing nail (principal) ==

== ENCOUNTER → 2017-06-10 | Outpatient (CLI) | payer BC ==
[2017-06-10 09:58] LABS: HEMATOCRIT 39.8 % (37-47); MEAN CELL VOLUME 88.8 fL (80-100); MEAN CORPUSCULAR HEMOGLOBIN 29.2 pg (25-34); MEAN CORPUSCULAR HGB CONC 32.9 g/dl (32-36); MEAN PLATELET VOLUME 9.6 fL (7.4-10.4); PLATELET COUNT 163 K/uL (130-400); RED BLOOD COUNT 4.48 M/uL (4.2-5.4); WHITE BLOOD COUNT 5.24 K/uL (4.8-10.8)
[2017-06-10 10:05] LABS: CREATININE 0.83 mg/dl (0.60-1.20)
== END | disposition home or self-care (01) ==
LOC: C.LAB1850 08:04
PROVIDERS: ATTEND Pathology Blood Banking & Transfusion Medicine
DX: Z79.01 Long term (current) use of anticoagulants (principal)

== ENCOUNTER → 2017-09-02 | Outpatient (CLI) | payer BC ==
[~2017-09-02] MED LIST changes: -TERB250T51 PO
[2017-09-02 09:35] LABS: BASO % 0.3 %; BASO ABS # 0.01 K/uL (0-0.2); EOS ABS # 0.11 K/uL (0-0.5); HEMOGLOBIN 14.5 g/dL (12.0-16.0); LYMPH % 40.8 %; LYMPH ABS # 1.48 K/uL (1.2-3.4); MEAN CELL VOLUME 88.1 fL (80-100); MEAN CORPUSCULAR HEMOGLOBIN 27.8 pg (25-34); MEAN CORPUSCULAR HGB CONC 31.5 g/dl (32-36); MEAN PLATELET VOLUME 9.9 fL (7.4-10.4); MONO % 8.3 %; NEUT % 47.6 %; NEUT ABS # 1.73 K/uL (1.4-6.5); PLATELET COUNT 198 K/uL (130-400); RED CELL DISTRIBUTION WIDTH CV 12.8 % (11.5-14.5); RED CELL DISTRIBUTION WIDTH SD 41.1 fL (36.4-46.3); WHITE BLOOD COUNT 3.63 K/uL (4.8-10.8)
[2017-09-02 10:00] LABS: CREATININE 0.94 mg/dl (0.60-1.20)
== END | disposition home or self-care (01) ==
LOC: C.LAB1850 08:04
PROVIDERS: ATTEND Pathology Blood Banking & Transfusion Medicine
DX: I82.409 Acute embolism and thrombosis of unspecified deep veins of unspecified lower extremity (principal)